=== PATIENT | male | born 1995 | race Caucasian/White ===

== ENCOUNTER 2019-08-11 19:07 | Emergency (ER) | payer OTHER ==
[~2019-08-11] VITALS: Ht 175.3 cm; Wt 57.5 kg
[2019-08-11 19:19] VITALS: BP 124/77
--- NOTE | 2019-08-11 19:50 | NUR ---
pt ambulated to room 19 stating he had a syncopal episode yesterday at work. Pt states he was sitting in a meeting, watching a presentation when he felt warm, saw white and passed out. Denies hitting head or any sx at this time.
[2019-08-11 20:38] LABS: BASOPHILS # (AUTO) 0.05 x10^3/uL (0-0.1); BASOPHILS % (AUTO) 1 % (0-1); EOSINOPHILS # (AUTO) 0.09 x10^3/uL (0-0.4); EOSINOPHILS % (AUTO) 2 % (1-7); LYMPHOCYTES # (AUTO) 2.39 x10^3/uL (1-3.4); LYMPHOCYTES % (AUTO) 46 % (22-44); MD NO; MEAN CORPUSCULAR HEMOGLOBIN 31.7 pg (27.5-34.5); MEAN CORPUSCULAR HGB CONC 33.6 g/dL (33.2-36.2); MEAN CORPUSCULAR VOLUME 94.4 fL (81-97); MEAN PLATELET VOLUME 7.7 fL (7.4-10.4); MONOCYTES # (AUTO) 0.63 x10^3/uL (0.2-0.8); MONOCYTES % (AUTO) 12 % (2-9); NEUTROPHILS # (AUTO) 2.09 x10^3/uL (1.8-6.8); NEUTROPHILS % (AUTO) 40 % (42-75); PLATELET COUNT 207 x10^3/uL (130-400); RED BLOOD COUNT 4.65 x10^6/uL (4.38-5.82); RED CELL DISTRIBUTION WIDTH 13.4 % (9.4-14.8)
[2019-08-11 20:48] LABS: ANION GAP 4 mmol/L (5-15); CALCIUM 9.1 mg/dL (8.5-10.1); CHLORIDE 107 mmol/L (98-107)
[2019-08-11 20:49] LABS: CREATININE 0.76 mg/dL (0.7-1.3)
[2019-08-11 20:50] LABS: MICROSCOPIC NOT IND
[2019-08-11 20:56] LABS: CULTURE INDICATED? NO
== END 2019-08-11 22:15 | disposition home or self-care (01) ==
LOC: ED 21:16
DX: R55 Syncope and collapse (principal); I86.1 Scrotal varices
CPT/HCPCS: 36415; 71046; 76870; 80048; 81003; 82040; 85025; 87491; 87591; 93005; 99284